=== PATIENT | male | born 1955 | race Caucasian/White ===

== ENCOUNTER → 2019-02-27 | Outpatient (CLI) | payer BC ==
--- NOTE | 2019-02-27 09:48 | Diagnostic Imaging Report ---
PROCEDURE: CT cervical spine without contrast. TECHNIQUE: Multiple contiguous axial images were obtained through the cervical spine without the use of intravenous contrast. Sagittal and coronal reformations were then performed. Auto Exposure Controls were utilized during the CT exam to meet ALARA standards for radiation dose reduction. INDICATION: Neck surgery. FINDINGS: Postop changes of ACDF with anterior plate and screws transfixing the C4-C6 levels are noted. The hardware appears to be intact. No fracture or loosening is seen. Alignment is normal. There is multilevel degenerative disc disease with variable disc space narrowing and marginal spurring. Mild neuroforaminal narrowing at C3-C4 level is seen on the right due to uncovertebral joint degenerative change. Moderate bilateral neuroforaminal narrowing at C4-C5 and C5-C6 levels is noted. There is mild to moderate bilateral neuroforaminal narrowing at C6-C7 levels. No acute bony abnormality is identified. Odontoid is intact. IMPRESSION: Postop changes of ACDF at C4-C6. No hardware fracture or loosening is identified. There is generalized cervical spondylosis and neuroforaminal narrowing described level by level above. Dictated by: Dictated on workstation # [id number]
== END ==
LOC: RAD 08:55
PROVIDERS: ATTEND Physician Assistant
DX: M48.02 Spinal stenosis, cervical region (principal); M47.812 Spondylosis without myelopathy or radiculopathy, cervical region; Z98.1 Arthrodesis status
CPT/HCPCS: 72125